=== PATIENT | female | born 2005 | race African-American/Black ===

== ENCOUNTER 2023-01-27 11:12 | Emergency (ER) | payer OTHER ==
[2023-01-27 12:00] LABS: #Eosinphils 0.1 10x3/uL (0.0-0.5); #Monocytes 0.6 10x3/uL (0.0-1.1); #Neutrophils 4.4 10x3/uL (1.5-8.4); %Basophils 0.5 % (0.0-2.0); %Eosinophils 1.7 % (0.0-6.0); %Lymphocytes 33.6 % (18.0-47.0); %Monocytes 7.4 % (0.0-10.0); %Neutrophils 56.5 % (40.0-75.0); Hemoglobin 13.2 g/dL (12.0-15.5); Mean Corpuscular HGB CONC 31.3 g/dL (32.0-36.0); Mean Corpuscular Volume 79.9 fl (81.6-98.3); Mean Platelet Volume 9.2 fl (7.4-10.4); Platelet Count 328 10x3/uL (150-450); RBC Distribution Width 15.4 % (11.5-14.5); Red Blood Cell (RBC) Count 5.28 10x6/uL (3.90-5.03); White Blood Cell (WBC) Count 7.7 10x3/uL (3.5-10.5)
[2023-01-27 12:14] LABS: Bilirubin Neg (Negative); Blood, Urine Negative (Negative); Clarity Clear (Clear); Glucose, Urine (Dipstick) Normal (Negative); Ketone, Urine Negative (Negative); Leukocyte Negative (Negative); Nitrite Negative (Negative); Protein, Urine (Dipstick) Negative (Neg-Trace); Specific Gravity, Urine 1.015 (1.005-1.030); Urobilinogen Normal mg/dL (Less than 2)
[2023-01-27 12:18] LABS: Pregnancy Test - Urine (BHCG) Negative (Negative); Pregu Control Background? CLEAR/WHITE (CLR/WHITE); Pregu Control Bar Appear? YES (CONTROL BAR); Specific Gravity 1.015 (1.002-1.036)
[2023-01-27 12:21] LABS: Anion Gap 15 mmol/L (10-20); BUN (Urea Nitrogen) 10 mg/dL (8.4-21.0); Calc. Creatinine Clearance 0 mL/min (70-130); Carbon Dioxide 23 mmol/L (22-29); Chloride 105 mmol/L (98-107); Potassium 4.4 mmol/L (3.5-5.1); Sodium 139 mmol/L (136-145)
[2023-01-27 12:22] LABS: ALT (SGPT) 16 U/L (8-55); AST (SGOT) 15 U/L (5-30); Albumin 3.9 g/dL (3.5-5.0); Alkaline Phosphatase 68 U/L (40-100); Bilirubin, Total 0.2 mg/dL (0.2-1.2); Calcium 9.6 mg/dL (7.8-10.44); Estimated GFR 114; Globulin 3.9 g/dL (2.4-3.5); Glucose 89 mg/dL (70-105); Protein, Total 7.8 g/dL (6.0-8.3)
[2023-01-27 12:27] LABS: Bacteria/HPF Rare-Few HPF (None Seen); CAUTI Indications for Culture Pelvic or flank pain; RBC/HPF None Seen HPF (0-3); WBC/HPF 0-3 HPF (0-3)
[2023-01-27 12:29] LABS: Urine Culture Reflex No No
[2023-01-27] MEDS ORDERED: Ondansetron ODT 4 MG TAB ONE (14:12)
[2023-01-27] MEDS ORDERED: Famotidine 20 MG TAB ONE (14:18)
== END 2023-01-27 14:40 | disposition home or self-care (01) ==
LOC: CSHERS 11:12
DX: R11.2 Nausea with vomiting, unspecified (principal); L30.9 Dermatitis, unspecified; L29.9 Pruritus, unspecified; R10.13 Epigastric pain
CPT/HCPCS: 36415; 80053; 81001; 81025; 85025; 99284; Q0162

== ENCOUNTER 2025-01-30 16:06 | Emergency (ER) | payer SELFPAY | END 2025-01-30 17:25 | disposition home or self-care (01) | LOC: CSHERS 16:06 | DX: B34.9 Viral infection, unspecified (principal) | CPT/HCPCS: 87428; 99283 ==

== ENCOUNTER 2025-05-13 19:47 | Emergency (ER) | payer SELFPAY | END 2025-05-13 22:01 | LOC: CSHERS 19:47 | DX: Z53.21 Procedure and treatment not carried out due to patient leaving prior to being seen by health care provider (principal) | CPT/HCPCS: 87428 ==